=== PATIENT | male | born 1955 | race Caucasian/White ===

== ENCOUNTER 2023-07-11 00:32 | Day surgery (SDC) | payer MEDICARE, OTHER, SELFPAY ==
[2023-07-10 20:11] VITALS: BMI 32.3
[2023-07-10 20:13] VITALS: BP 146/89
[2023-07-10 20:43] LABS: % Basophils 0.2 % (0-2); % Eosinophils 0.1 % (0-6); % Immature Granulocytes 0.4 % (0-0.5); % Lymphocytes 5.8 % (20.5-51.1); % Monocytes 8.1 % (1.7-9.3); % Neutrophils 85.4 % (42.2-75.2); Absolute Immature Granulocytes 0.1 10^3/uL (0-0.05); Absolute Monocytes 1.4 10^3/uL (0.1-0.6); Absolute Neutrophils 15.1 10^3/uL (1.4-6.5); Hematocrit 43.7 % (39.0-52.0); Hemoglobin 15.6 g/dL (13.0-18.0); Mean Corp Hgb Conc. 35.7 g/dL (33.0-37.0); Mean Corpuscular Volume 92.4 fL (80.0-94.0); Mean Platelet Volume 10.2 fL (7.4-10.4); Nucleated Red Blood Cells % 0 % (-); Platelet Count 173 10^3/uL (130-400); Red Blood Cell Count 4.73 10^6/uL (4.70-6.10); White Blood Cell Count 17.7 10^3/uL (4.8-10.8)
[2023-07-10 21:06] LABS: ALT (SGPT) 37 U/L (0-50); AST (SGOT) 33 U/L (17-59); Albumin 4.6 g/dl (3.5-5.0); Alkaline Phosphatase 137 U/L (38-126); Blood Urea Nitrogen 19 mg/dl (9-20); Calcium 9.7 mg/dl (8.4-10.2); Carbon Dioxide 24 mmol/L (22-30); Chloride 100 mmol/L (98-107); Glucose 164 mg/dl (70-99); Lipase 106 U/L (23-300); Potassium 4.1 mmol/L (3.5-5.1); Sodium 133 mmol/L (135-145); Total Bilirubin 1.6 mg/dl (0.2-1.3); Total Protein 7.1 g/dl (6.3-8.2); eGFR > 60.00
[2023-07-10 21:11] VITALS: BP 125/78
[2023-07-10] MEDS: ZOFRAN 4 MG IV (21:42)
[2023-07-10] MEDS: NSS 500 IV (21:43)
[2023-07-10 22:00] VITALS: BP 117/74
--- NOTE | 2023-07-10 22:22 | ED.GENMED ---
History of Present Illness
General
Chief Complaint: Abdominal Pain
Source: patient and spouse
Exam Limitations: none
Time Seen by Provider: 07/10/23 21:18
Travel History
Have you had any contact with someone who has COVID-19?: No
Do you have any symptoms of coronavirus? Fever > 100 degrees, chills, cough, shortness of breath, sore throat, loss of taste or smell, muscle aches, or headache?: No
History of Present Illness
History of Present Illness:
67-year-old male 2 days of lower abdominal pain. Seem to start more right upper quadrant initially. Now points more to the right mid to lower. Slightly improved symptoms since yesterday. No nausea or vomiting initially however did become
nauseous in the ER. Bowel movements are normal. No previous similar episodes.
Past History
Past History
ED Past Medical History: HTN, Hypercholesterolemia and Other (Amyloidosis)
ED Past Surgical History: Other (Partial parathyroidectomy. Bariatric surgery)
Review of Systems
Review of Systems
All Other Systems: Not applicable
Constitutional: Denies fever
Respiratory: Reports no symptoms
Cardiac: Reports no symptoms
Phy Exam
Physical Exam
Physical Exam:
GENERAL: Alert and oriented in no apparent distress
EYE: Orbits normal.
NECK: Supple
CARDIAC: Regular rate and rhythm without any obvious murmurs.
LUNGS: Clear breath sounds,normal
ABDOMEN: Soft, bowel sounds present. Mild right lower quadrant tenderness slightly superior to McBurney's point. No rebound or guarding no mass or hernia
NEUROLOGICAL: Alert and oriented , grossly non-focal
SKIN: Warm and dry, no rash or lesion, no discoloration, skin intact.
MUSCULOSKELETAL: No edema,no deformity.Good color
PSYCH: Normal and appropriate interaction.
Course
Orders/Labs/Results
Orders:
Orders
07/10/23 20:23
Complete Blood Count/With Diff Urgent
Comprehensive Metabolic Panel Urgent
Lipase Urgent
07/10/23 21:26
IV Insert/Care/Rem.- Treatment PRN
Urinalysis Reflex To Culture Urgent
Date Specimen was Collected: 07/11/23
Time Specimen was Collected: 01:05
0.9% Sodium Chloride 500 ml [Nss] 500 ml IV BOLUS
Iohexol [Omnipaque] See Protocol PO NOW STA
07/10/23 21:40
CT Abd/Pel (IV only)-DH only Urgent
Comment:
Reason For Exam: Right lower quadrant pain
Ondansetron Injectable [Zofran] 4 mg .ROUTE .STK-MED ONE
Ondansetron Injectable [Zofran] 4 mg IV NOW STA
07/11/23 00:21
Admit/Transfer Patient As Directed
Co-Sign Provider:
Level of Care: Observation services
Assign to:: Medical/Surgical
Physician / Group: Devon
Diagnosis: Abd Pain
Reason for Hospitalization: Abd Pain
Expected length of stay greater than two midnights?: Yes
ELOS- Estimated Length of Stay in days: 2
I certify the patient meets the requirements for IP care: Yes
07/11/23 00:22
Code Status As Directed
Resuscitation Status: Full Code
Abnormal Lab Results
07/10/23
20:23
WBC 17.7 H 10^3/uL
(4.8-10.8)
MCH 33.0 H pg
(27.0-31.0)
Abs Immat Gran (auto) 0.1 H 10^3/uL
(0-0.05)
Absolute Neuts (auto) 15.1 H 10^3/uL
(1.4-6.5)
Absolute Lymphs (auto) 1.0 L 10^3/uL
(1.2-3.4)
Absolute Monos (auto) 1.4 H 10^3/uL
(0.1-0.6)
Neutrophils % 85.4 H %
(42.2-75.2)
Lymphocytes % 5.8 L %
(20.5-51.1)
Sodium 133 L mmol/L
(135-145)
Glucose 164 H mg/dl
(70-99)
Total Bilirubin 1.6 H mg/dl
(0.2-1.3)
Alkaline Phosphatase 137 H U/L
(38-126)
07/10/23 20:23
07/10/23 20:23
Vital Signs
Initial and Last Documented VS:
Initial Vital Signs
Temp Pulse Resp BP Pulse Ox
99.1 F 99 18 146/89 99
07/10/23 20:13 07/10/23 20:13 07/10/23 20:13 07/10/23 20:13 07/10/23 20:13
Last Documented Vital Signs
Temp Pulse Resp BP Pulse Ox
99.1 F 99 18 118/68 98
07/10/23 20:13 07/10/23 20:13 07/10/23 20:13 07/11/23 00:00 07/11/23 01:00
MDM/Problems Addressed
Differential Diagnosis Includes:
Differential would be appendicitis, right-sided diverticulitis, nonspecific. Doubt gallbladder. Location is too low. Workup in progress
Patient with mild free fluid/likely incidental gallstones, leukocytosis, etiology uncertain however patient remains uncomfortable enough with enough findings to support inpatient management
*Radiology
Radiology exam reviewed: radiology read reviewed (Gallstones/mild free fluid)
*Pulse Oximetry
Patient hypoxic: no
*Critical Care Note
Total Time (30-74mins, 75-104mins- exclusive of procedures): Not Applicable
ED Attending Note
-
Portions of this chart may have been created with voice recognition software.� Occasional wrong word or��sound alike� substitutions may have occurred due to the inherent limitations of voice recognition software.
Discharge Plan
Departure
Patient Disposition: Admit
Date of Disposition: 07/10/23
Time of Disposition: 23:55
Presentation/result/management discussed w/ accepting MD/DO: Hospitalist
Discharge Problem:
Right lower quadrant abdominal pain, Incidental gallstones, Leukocytosis/free fluid
Interventions
Interventions:
*Risk Screen - Suicide Last Done: 07/10/23 20:13
*General Assessment Last Done: 07/10/23 20:13
*Neglect/Abuse Screening Last Done: 07/10/23 21:19
ED- Fall Risk Assessment Last Done: 07/10/23 21:19
*ED COVID-19 Vaccine History Last Done: 07/10/23 20:13
QG-Apknlq-Ltamngoosr Assessment Last Done: 07/10/23 21:18
[2023-07-10 23:00] VITALS: BP 120/75
[2023-07-10 23:17] VITALS: BP 124/80
[2023-07-11] VITALS (19 sets, daily range): BP systolic 10–135; BP diastolic 56–90; BMI 32.1
--- NOTE | 2023-07-11 00:25 | HPS.HSE ---
Family Physician
-
Family Physician: Jordi Perea
Chief Complaint
-
Abd Pain
History of Present Illness
Patient is a 67y M with PMH significant for hypertension, nephrolithiasis and amyloidosis who presents to ED complaining of abdominal pain x 2 days. Patient states that he initially started with R sided abdominal pain that was most severe last
PM while lying in bed. Pain at it;s worst was 7/10. He had N/V x 1 episode at that time. Today, he has felt nauseated for much of the day, but had no further emesis. His pain migrated towards the lower abdomen / pelvis.
Patient denies any fevers / chills, urinary complaints, changes in bowels etc.
He presented to the ED for further evaluation. In the ED he is currently pain-free.
Patient recalls that he had R flank discomfort several days ago - he believed this was due to doing yard work.
He also reports an episode of severe RUQ pain about 2 weeks ago while lying in bed. This improved with TUMS and has not recurred.
He denies any other current complaints or concerns.
Medical History
Past Medical History
Past Medical History: Reports Other
Additional Past Medical History:
Hypertension
Nephrolithiasis
Hyperparathyroidism
AL Amyloidosis
Dyslipidemia
Past Surgical History: Reports Other
Additional Past Surgical History:
Fat Pad Biopsy
Parathyroidectomy
Gastric Sleeve
Social History
Tobacco: Non-smoker
Alcohol: None
Drug: None
Personal:
Living: With Family
Family History
Family History: Other (Mother: Longevity, Dementia Father: Prostate Cancer, CAD)
Allergies / Home Medications
Allergies reflects when Allergies were last updated in [facility].
Home Medications with original date entered in [facility]
Allergy/Medication List:
Allergies
Allergy/AdvReac Type Severity Reaction Status Date / Time
No Known Allergies Allergy Verified 07/10/23 20:13
Home Medications
atorvastatin 10 mg tablet 10 mg PO DAILY 07/11/23
daratumumab 20 mg/mL intravenous solution (Darzalex) See Rx Instructions .Route .COMPLEX 07/11/23
hydrochlorothiazide 25 mg tablet 25 mg PO DAILY 07/11/23
lisinopril 20 mg tablet 20 mg PO DAILY 07/11/23
Review of Systems
-
History Source: Patient
A 12 point ROS was completed and negative except as noted: Yes
Constitutional: Denies Fever or Chills
Respiratory: Denies Cough or Trouble Breathing
Cardiac: Denies Chest Pain or Palpitations
Abdomen/GI: Reports Abdominal Pain, Nausea and Vomiting; Denies Diarrhea, Constipated, Bloody Stools or Black Stools
: Reports Flank Pain; Denies Dysuria, Frequency, Incontinence, Difficulty Voiding or Bleeding
Musculoskeletal: Denies Joint Pain or Edema
Neurological: Denies Dizzy or Headache
Psych: Denies Depression or Anxiety
Physical Exam
Vital Signs
Vital Signs
Temp Pulse Resp BP Pulse Ox
99.1 F 99 18 124/80 95
07/10/23 20:13 07/10/23 20:13 07/10/23 20:13 07/10/23 23:17 07/10/23 23:17
Physical Exam
General: Other (67y M in no acute distress.)
HEENT: Moist mucous membranes and PERRLA
Respiratory: Clear; No Wheezes, Rales or Rhonchi
Cardiac: S1/S2 and Regular Rhythm; No Murmur
GI: Soft, Non Distended, Normal Bowel Sounds and Other (Perhaps mild RUQ tenderness. No rebound / guarding.)
Genito-urinary: No costovertebral tender
Musculoskeletal: No Clubbing, No Cyanosis and No Edema
Neuro: AO x 3
Laboratory Results
-
07/10/23 20:23
07/10/23 20:23
Laboratory Results
Total Bilirubin 1.6 mg/dl (0.2-1.3) H 07/10/23 20:23
AST 33 U/L (17-59) 07/10/23 20:23
ALT 37 U/L (0-50) 07/10/23 20:23
Alkaline Phosphatase 137 U/L (38-126) H 07/10/23 20:23
Lipase 106 U/L (23-300) 07/10/23 20:23
Impression/Plan
-
A/P: Patient is a 67y M with PMH significant for amyloidosis, hypertension and nephrolithiasis who presents to ED c/o 2 days of abdominal pain.
Abdominal Pain
- Observe overnight for further evaluation and treatment.
- Differential includes cholecystitis, symptomatic cholelithiasis, ureterolithiasis / passed stone, etc.
- No UA has been done yet to assess for hematuria - await results.
- 1 cm bladder stone noted on CT. ? R flank pain followed by R abdominal pain and then pelvic pain represented passage of stone?
- 3 large gallstones seen on CT. Prior episode of RUQ pain. Associated N/V and mild RUQ tenderness on today's exam.
- Bili / Alk phos mildly elevated as well.
- Check abdominal US for further evaluation.
- Cover with IV abx for now given leukocytosis.
- Consider Surgery evaluation if US suggests gallbladder disease.
- Monitor for any new / worsening symptoms.
- Supportive care, pain control / antiemetics as needed.
Benign Hypertension
- Stable. Continue lisinopril with holding parameters.
Amyloidosis
- Currently in treatment - now on once monthly Darzalex only.
- Patient notes that recent OP las included WBC = 9.4.
- Follow-up with Heme Onc as an outpatient.
DVT Prophylaxis: Lovenox
Code Status: Full
[2023-07-11 01:20] LABS: Urine Albumin Negative (Neg - Trace); Urine Bilirubin Negative (Negative); Urine Character Clear (Clear); Urine Color Yellow; Urine Glucose Negative (Negative); Urine Ketone Negative (Negative); Urine Leukocyte Negative (Negative); Urine Nitrite Negative (Negative); Urine Occult Blood Negative (Negative); Urine Urobilinogen Negative (Neg - 1+)
[2023-07-11] MEDS: NSS 1000 IV ×2 (04:04→21:36)
[2023-07-11] MEDS: ZOSYN 50 IV ×3 (04:04→21:30)
[2023-07-11 05:34] LABS: Hematocrit 39.5 % (39.0-52.0); Hemoglobin 14.2 g/dL (13.0-18.0); Mean Corp Hgb Conc. 35.9 g/dL (33.0-37.0); Mean Corpuscular Hgb 32.5 pg (27.0-31.0); Mean Corpuscular Volume 90.4 fL (80.0-94.0); Mean Platelet Volume 10.4 fL (7.4-10.4); Platelet Count 146 10^3/uL (130-400); Red Blood Cell Count 4.37 10^6/uL (4.70-6.10); Red Cell Dist. Width 12.3 % (11.5-14.5); White Blood Cell Count 15.8 10^3/uL (4.8-10.8)
[2023-07-11 05:54] LABS: ALT (SGPT) 30 U/L (0-50); AST (SGOT) 27 U/L (17-59); Alkaline Phosphatase 127 U/L (38-126); Blood Urea Nitrogen 19 mg/dl (9-20); Calcium 9.2 mg/dl (8.4-10.2); Carbon Dioxide 26 mmol/L (22-30); Chloride 99 mmol/L (98-107); Direct Bilirubin 0.4 mg/dl (0.0-0.4); Estimated Creatinine Clearance 103 ml/min; Glucose 120 mg/dl (70-99); Potassium 4.2 mmol/L (3.5-5.1); Sodium 134 mmol/L (135-145); Total Bilirubin 1.6 mg/dl (0.2-1.3); Total Protein 6.3 g/dl (6.3-8.2); eGFR > 60.00
[2023-07-11] MEDS: ZESTRIL 20 MG PO (10:13)
[2023-07-11] MEDS: FLUSH (NSS) 1 FLUSH IV ×2 (10:13→13:44)
[2023-07-11] MEDS: LIPITOR 10 MG PO (10:13)
--- NOTE | 2023-07-11 10:20 | PTCARENOTE ---
Received pt from ER/US via stretcher, accompanied by volunteer. Pt AAO x3, ARCHER well, ambulatory to bed, no c/o weakness/dizziness. VSS. On room air- pulse ox 98%, no SOB noted. Abd large, soft, BS (+), no c/o abd discomfort at present, to start
clear liquids. Pt DTV, urinal at bedside; pt instructed to strain all urine. Afebrile, warm and dry. IVF's NSS @ 100 ml/hr infusing via Lt AC site without sx of infiltration. Oriented to 4east, currently resting quietly. Will continue to
monitor.
--- NOTE | 2023-07-11 10:36 | CM ---
Addendum entered by Lianna Gamez 07/11/23 12:59:
Patient for surgery later today, per patient.
Original Note:
Patient seen at bedside with physician. Patient states that he lives with his in 2 story home. Patient stated that he has no DME and currently undergoing Chemo from [facility]. Patient PCP is Dr. Perea and patient states that he is normally
independent of all ADL's and IADL's. Patient stated that he does not anticipate discharge needs at this time. Patient currently discussing with surgery next steps. Patient currently OBS/LAGOS and CM will review form with patient pending discussion.
CM will continue to follow for discharge planning needs.
Plan; home with no needs
--- NOTE | 2023-07-11 11:13 | W.PN.HOSP.TC ---
Today's Communication/Plan
-
consult surgery
anticipate OR today
keep NPO
Assessment / Plan
Assessment / Plan
pt is a 67 year old male
Abdominal Pain due to acute cholecystitis--US positive--keep NPO--consult surgery--likely OR later today--cont zosyn--pain control
Essential Hypertension- Stable--Continue lisinopril with holding parameters.
Amyloidosis--Currently in treatment - now on once monthly Darzalex only--Follow-up with Heme Onc as an outpatient.
DVT Prophylaxis: Lovenox
Code Status: Full
Anticipated Discharge: 24 - 48 hours
Subjective/Interval History
-
Date of Service: July 11, 2023
pt feels better--just returned from US
Objective Data
-
Labs:
Laboratory Results
07/11/23
04:03
WBC 15.8 H
Hgb 14.2
Hct 39.5
Plt Count 146
Sodium 134 L
Potassium 4.2
Chloride 99
Carbon Dioxide 26
BUN 19
Creatinine 0.9
Glucose 120 H
Calcium 9.2
Total Bilirubin 1.6 H
AST 27
ALT 30
Alkaline Phosphatase 127 H
Vital Signs:
max temp for 24 hours
07/10/23
20:13
Temp 99.1 F
Vital Signs
Temp Pulse Resp BP Pulse Ox
99 F 79 16 135/90 98
07/11/23 09:00 07/11/23 10:13 07/11/23 09:00 07/11/23 10:13 07/11/23 09:41
Review of Systems
-
All other systems: Reviewed and negative
Physical Exam
-
General: Well Developed, Well Nourished and No Apparent Distress
HEENT: Normocephalic and Atraumatic
Respiratory: Clear to Auscultation; Negative Wheezes or Rhonchi
Cardiac: Regular Rhythm and S1/S2; Negative Murmur
GI: Soft, Nontender, Nondistended and Normal Bowel Sounds
Musculoskeletal: No Clubbing, No Cyanosis and No Edema
Skin: Warm
Neuro: Awake
--- NOTE | 2023-07-11 11:14 | CON.GS ---
Medical History
-
Chief Complaint: RUQ pain
History of Present Illness:
Patient is a 67 yo M with a PMH notable for GERD, HTN, amyloidosis (on monthly immunologic), s/p abdominal fat pad biopsy, and s/p laparoscopic sleeve gastrectomy in 2014 (weight loss approximately 100 pounds). Mr. Quinn presents with approximately
2 days of RIGHT-sided abdominal pain. He states that his symptoms began acutely on Monday afternoon/evening. Symptoms began after a meal of chicken and rice. He describes sharp RUQ abdominal pain. His pain been migrated towards the more RIGHT
mid central abdomen. Associated nausea and vomiting. No fevers or chills. No back or shoulder pain. Denies any jaundice, pale stools, or tea colored urine. Currently he states that his symptoms have significantly improved though has some mild
residual discomfort. He denies any prior attacks of similar pain. He does have issues with reflux post sleeve procedure.
Past Medical History
Past Medical History: GERD, HTN and Other (Amyloidosis)
Past Surgical History: Bariatric (Laparoscopic sleeve gastrectomy in 2015) and Other (Abdominal fat pad biopsy)
Social History
Tobacco: Non-Smoker
Alcohol: None
Drug: None
Personal:
Living: With Family
Employment: Retired
Family History
Family History: Reviewed & Noncontributory
Allergies / Home Medications
Allergy/AdvReac Type Severity Reaction Status Date / Time
No Known Allergies Allergy Verified 07/11/23 09:43
�Medication �Instructions �Recorded �Confirmed �Type
atorvastatin 10 mg tablet 10 mg PO DAILY High Cholesterol 07/11/23 07/11/23 History
daratumumab 20 mg/mL intravenous 20 mg IV MONTHLY amyloidosis 07/11/23 07/11/23 History
solution (Darzalex)
hydrochlorothiazide 25 mg tablet 25 mg PO DAILY Fluid 07/11/23 07/11/23 History
Retention/Swelling/blood pressure
lisinopril 40 mg tablet 40 mg PO DAILY Blood Pressure 07/11/23 07/11/23 History
Review of Systems
-
A 10 point review of systems was completed, and was negative except as per HPI.
Physical Exam
Vital Signs
Temp Pulse Resp BP Pulse Ox
99 F 79 16 135/90 98
07/11/23 09:00 07/11/23 10:13 07/11/23 09:00 07/11/23 10:13 07/11/23 09:41
07/10/23 07/11/23 07/12/23
06:59 06:59 06:59
Actual Weight 108 kg 107.218 kg
Body Mass Index (BMI) 32.1
Lab Results
07/11/23 04:03
07/11/23 04:03
WBC 15.8 10^3/uL (4.8-10.8) H 07/11/23 04:03
Hgb 14.2 g/dL (13.0-18.0) 07/11/23 04:03
Hct 39.5 % (39.0-52.0) 07/11/23 04:03
Plt Count 146 10^3/uL (130-400) 07/11/23 04:03
Abs Immat Gran (auto) 0.1 10^3/uL (0-0.05) H 07/10/23 20:23
Neutrophils % 85.4 % (42.2-75.2) H 07/10/23 20:23
Physical Exam
General: Well Developed, Well Nourished and No Apparent Distress
HEENT: Normocephalic and Anicteric
Respiratory: Non Labored Respirations
Cardiac: Regular Rhythm
GI: Soft, Non Tender, Non Distended, Obese and Other (Non-peritoneal, negative Laura's sign)
Musculoskeletal: No Edema
Skin: Warm and Dry
Neuro: Nonfocal/Grossly Intact
Data Reviewed
-
CT Scan: Image Personally Visualized and interpreted and Report Reviewed by me
Ultrasound: Image Personally Visualized and interpreted and Report Reviewed by me
Labs: Labs Reviewed by me
Assessment / Plan
-
Patient is a 67 yo M p/w acute cholecystitis
The natural history and pathophysiology of biliary and stone disease was discussed. Anatomy was reviewed utilizing pictorial images. Workup thus far including CT, US, and labs were reviewed. Options for management including a trial of dietary
advancement and low-fat diet with outpatient management versus proceeding with cholecystectomy were considered and discussed. The pros and cons of both approaches was discussed. Specifically, we discussed persistent pain and worsening of
cholecystitis versus surgical risks. Recommend cholecystectomy.
Plan for laparoscopic cholecystectomy with possible cholangiogram. The procedure itself, as well as the risks, benefits, and alternatives was discussed. Specifically, we discussed the risks of bleeding, infection, injury to surrounding structures
(bowel, bile ducts), CBD injury, need for open procedure. Typical postprocedural recovery was discussed. All questions answered. Consent signed.
-- Laparoscopic cholecystectomy with possible IOC
-- NPO, IVF
-- Antibiotics: Zosyn
-- Pain control: Tylenol and IV Dilaudid PRN
--- NOTE | 2023-07-11 11:45 | W.SUR.PREOP ---
Pre-Operative Surgical Note
-
I have examined this patient prior to the performance of the scheduled procedure.
The patient's condition is unchanged from the time of the current History and
Physical and the patient is able to undergo the scheduled procedure.
[2023-07-11] MEDS: ZOFRAN 4 MG IV (13:44)
--- NOTE | 2023-07-11 15:30 | PTCARENOTE ---
Pt resting quietly since arrival on unit. Remains NPO; c/o mild nausea- good effect with IV Zofran. Voiding clear yellow urine in urinal, no stones noted. IVF's NSS @ 100 ml/hr infusing via Lt AC site without sx of infiltration. Pt currently in
OR.
--- NOTE | 2023-07-11 18:35 | W.IMMPOSTOP ---
Addendum entered and electronically signed by All Her MD 07/12/23 07:20:
Dic# [id number]
Addendum entered and electronically signed by All Her MD 07/11/23 18:45:
Plan:
-- ADAT to LFD as tolerated
-- Drain can be DC'd on DC if outputs benign
-- Treat with 4 days abx (Zosyn while in hospital, Augmentin on DC)
Original Note:
Surgical Immed Post Op Note
-
Primary Surgeon: Taina
Assisting Surgeon: BRUCE Sandoval
Pre-op Diagnosis: Acute cholesytitis
Post-op Diagnosis: Acute on chronic cholecystitis
Procedure Performed: Laparoscopic cholecystectomy with IOC
Anesthesia Type: General
Specimen / Cultures:
1. Gallbladder
Estimated Blood Loss: 23 cc
Complications: None
Operative Findings:
1. Chronically inflamed GB dense adhesions on infundibulum of GB due to large > 3cm impacted stones, adhesions to duodenum at this level
2. Critical view of safety obtained, IOC without filling defects, anatomy confirmed, no leakage from duodenum
3. Duct take with cobian load stapler, artery with clips
4. 19 Fr Roland drain into operative field
[2023-07-11] MEDS: ZOSYN IV (19:28)
[2023-07-11] MEDS: ROXICODONE 5 MG PO (21:30)
[2023-07-12] MEDS: ZOSYN 50 IV ×3 (04:04→16:01)
[2023-07-12 06:00] VITALS: BMI 29.5
[2023-07-12 07:30] VITALS: BP 104/64
[2023-07-12 08:19] LABS: Hematocrit 37.5 % (39.0-52.0); Hemoglobin 13.3 g/dL (13.0-18.0); Mean Corp Hgb Conc. 35.5 g/dL (33.0-37.0); Mean Corpuscular Hgb 32.8 pg (27.0-31.0); Mean Corpuscular Volume 92.6 fL (80.0-94.0); Mean Platelet Volume 10.4 fL (7.4-10.4); Platelet Count 134 10^3/uL (130-400); Red Blood Cell Count 4.05 10^6/uL (4.70-6.10); Red Cell Dist. Width 12.4 % (11.5-14.5); White Blood Cell Count 17.3 10^3/uL (4.8-10.8)
[2023-07-12] MEDS: NSS 1000 IV (08:38)
[2023-07-12] MEDS: ZESTRIL 20 MG PO (08:39)
[2023-07-12] MEDS: NSS (PRESERVATIVE FREE) 10 ML IV (08:40)
[2023-07-12] MEDS: LIPITOR 10 MG PO (08:40)
[2023-07-12] MEDS: PROTONIX IV 40 MG IV (08:40)
[2023-07-12] MEDS: FLUSH (NSS) 1 FLUSH IV ×3 (08:41→16:01)
[2023-07-12 08:46] LABS: ALT (SGPT) 48 U/L (0-50); AST (SGOT) 53 U/L (17-59); Albumin 3.4 g/dl (3.5-5.0); Alkaline Phosphatase 97 U/L (38-126); Blood Urea Nitrogen 22 mg/dl (9-20); Calcium 8.6 mg/dl (8.4-10.2); Carbon Dioxide 28 mmol/L (22-30); Chloride 99 mmol/L (98-107); Estimated Creatinine Clearance 73 ml/min; Glucose 144 mg/dl (70-99); Magnesium 2.1 mg/dl (1.6-2.3); Potassium 4.4 mmol/L (3.5-5.1); Sodium 136 mmol/L (135-145); Total Bilirubin 1.6 mg/dl (0.2-1.3); Total Protein 5.6 g/dl (6.3-8.2); eGFR > 60.00
--- NOTE | 2023-07-12 09:58 | W.PN.GS2 ---
Today's Communication / Plan
-
OK for DC
Assessment / Plan
-
67M POD1 s/p lap shahrzad for ACC
Doing well post-op, OK for DC home from GS standpoint
Will plan to DC drain prior to DC
D/w Hospitalist
Subjective Data
-
Date of Service: July 12, 2023
AFVSS, pain controlled, [place] PO, has not yet ambulated
Objective Data
-
Intake and Output
07/11/23 07/12/23 07/13/23
06:59 06:59 06:59
Intake Total 2350 / 2350
Output Total 1530 / 1530
Balance 820 / 820
Intake:
Oral fluids 300 / 300
IV fluids (Total) 1900 / 1900
normosol 100 / 100
IV piggybacks 150 / 150
Output:
Drain Output (Total) 55 / 55
Right Abdomen Mayito-Romo 55 / 55
Urine, Voided 1475 / 1475
Vital Signs
Temp Pulse Resp BP Pulse Ox
97.5 F 65 16 104/64 96
07/12/23 07:30 07/12/23 08:39 07/12/23 07:30 07/12/23 08:39 07/12/23 08:35
Lab Results
07/12/23 07:47
07/12/23 07:47
Calcium 8.6 mg/dl (8.4-10.2) 07/12/23 07:47
Magnesium 2.1 mg/dl (1.6-2.3) 07/12/23 07:47
Total Bilirubin 1.6 mg/dl (0.2-1.3) H 07/12/23 07:47
Direct Bilirubin 0.4 mg/dl (0.0-0.4) 07/11/23 04:03
AST 53 U/L (17-59) 07/12/23 07:47
ALT 48 U/L (0-50) 07/12/23 07:47
Alkaline Phosphatase 97 U/L (38-126) 07/12/23 07:47
Total Protein 5.6 g/dl (6.3-8.2) L 07/12/23 07:47
Albumin 3.4 g/dl (3.5-5.0) L 07/12/23 07:47
Physical Exam
-
Gen: NAD
Abd: soft, obese, approp ttp, incisions cdi, drain ss (non bilious)
[2023-07-12] MEDS: NSS IV (10:02)
--- NOTE | 2023-07-12 14:09 | CM ---
Patient seen at bedside with physician. Patient now SDS and for discharge today. Patient at bedside and indicated that she would provide transportation home. Patient with no needs. CM will continue to follow for discharge planning needs.
Plan; home with no needs
--- NOTE | 2023-07-12 14:15 | W.PN.HOSP.TC ---
Today's Communication/Plan
-
d/c if tolerating dinner
Assessment / Plan
Assessment / Plan
pt is a 67 year old male
Abdominal Pain due to acute cholecystitis--US positive---apprec surgery--Post op lap shahrzad today--change zosyn to augmentin--pain control
Essential Hypertension- Stable--Continue lisinopril with holding parameters.
Amyloidosis--Currently in treatment - now on once monthly Darzalex only--Follow-up with Heme Onc as an outpatient.
DVT Prophylaxis: Lovenox
Code Status: Full
Anticipated Discharge: Today
Subjective/Interval History
-
Date of Service: July 12, 2023
pt cleared for d/c by surgery
Objective Data
-
Labs:
Laboratory Results
07/12/23
07:47
WBC 17.3 H
Hgb 13.3
Hct 37.5 L
Plt Count 134
Sodium 136
Potassium 4.4
Chloride 99
Carbon Dioxide 28
BUN 22 H
Creatinine 1.1
Glucose 144 H
Calcium 8.6
Total Bilirubin 1.6 H
AST 53
ALT 48
Alkaline Phosphatase 97
Vital Signs:
max temp for 24 hours
07/11/23
23:51
Temp 97.8 F
Vital Signs
Temp Pulse Resp BP Pulse Ox
97.5 F 65 16 104/64 96
07/12/23 07:30 07/12/23 08:39 07/12/23 07:30 07/12/23 08:39 07/12/23 08:35
I&O
07/11/23 07/12/23 07/13/23
06:59 06:59 06:59
Intake Total 2350 / 2350
Output Total 1530 / 1530
Balance 820 / 820
Review of Systems
-
All other systems: Reviewed and negative
Physical Exam
-
General: Well Developed, Well Nourished and No Apparent Distress
HEENT: Normocephalic and Atraumatic
Respiratory: Clear to Auscultation; Negative Wheezes or Rhonchi
Cardiac: Regular Rhythm and S1/S2; Negative Murmur
GI: Soft, Nontender, Nondistended and Normal Bowel Sounds
Musculoskeletal: No Clubbing, No Cyanosis and No Edema
Neuro: Awake
[2023-07-12 15:00] VITALS: BP 105/65
--- NOTE | 2023-07-12 16:24 | PTCARENOTE ---
Pt AAO x3, ARCHER well, ambulatory in room/hernandez, [place] well. VSS. On room air- pulse ox 98%, no SOB noted. Abd large, soft, [place] full liquids; to start low fat diet for dinner. Voiding clear lt srinivas urine in urinal; straining all urine- no stones
noted. Abd incision sites x4 D/I; Rt RADHA drain dc'd by Dr. Thomas. Resting comfortably at present. Will continue to monitor.
--- NOTE | 2023-07-12 17:25 | PTCARENOTE ---
patient offered washing washed face an stated'he will wash at home being discharged'.
--- NOTE | 2023-07-13 06:57 | W.DCSUMMARY ---
Discharge Summary
Discharge Data
Date of Admission: 07/11/23
Date of Discharge: 07/12/23
-
Pending Results: Yes
Additional Pending Results:
Final path report on surgical specimen
Hospital Course
Primary care physician : Jordi Perea
Principal Discharge diagnosis : Acute cholecystitis status post laparoscopic cholecystectomy
Chronic Discharge diagnosis : Essential hypertension, amyloidosis
Hospital Course : Patient is a 67-year-old male who presented complaining of 2 days worth of abdominal pain. He stated that it started in his right side of his abdomen that was most severe last evening prior to admission while lying in bed. He had
1 episode of nausea and vomiting. He denied fevers, chills, urinary complaints, bowel changes. 2 weeks prior to this admission he had another episode of severe right upper quadrant pain which improved with Tums. Patient was admitted.
Problem #1: Acute cholecystitis status post laparoscopic cholecystectomy. Patient was admitted and started on Zosyn. Ultrasound came back positive for acute cholecystitis. Surgery was consulted and the patient went to surgery for a laparoscopic
cholecystectomy on July 11, 2023. Patient was cleared for discharge the following day by surgery. He was tolerating a diet. He will complete his antibiotic course with Augmentin.
Problem #2: All other medical issues. These include Essential hypertension, amyloidosis. These medical issues were stable during this hospitalization. Medications were continued as able.
Patient is stable for discharge home at this time. If there are any questions regarding this dictation or his hospital stay, please do not hesitate to call. Our office number is [phone].
Important imaging findings :
CT SCAN ABDOMEN/PELVIS IMPRESSION: Mild free fluid in the pelvis uncommon in a male patient. Etiology unknown.
Large gallstones.
Mild fecal material throughout the colon.
Several nonobstructing left renal stones
Bladder stone.
Bilateral too small to characterize hypodense renal lesions likely benign cysts.
Tiny pericardial effusion versus pericardial thickening.
Mild prostate hypertrophy.
ULTRASOUND IMPRESSION:
1. Cholelithiasis, gallbladder distention, and gallbladder wall thickening. Negative sonographic Laura sign. Combined with findings recent prior CT, findings are suggestive of acute cholecystitis. If diagnosis is in doubt clinically, consider HIDA
scan.
2. Mild biliary ductal dilation, common bile duct measuring 6 mm in diameter.
3. Intrarenal nephrolithiasis on the left side. Mild prominence of the left intrarenal collecting system, not appreciated on recent prior CT.
Procedure findings :
Primary Surgeon: Taina
Assisting Surgeon: BRUCE Sandoval
Pre-op Diagnosis: Acute cholesytitis
Post-op Diagnosis: Acute on chronic cholecystitis
Procedure Performed: Laparoscopic cholecystectomy with IOC
Anesthesia Type: General
Specimen / Cultures:
1. Gallbladder
Estimated Blood Loss: 23 cc
Complications: None
Operative Findings:
1. Chronically inflamed GB dense adhesions on infundibulum of GB due to large > 3cm impacted stones, adhesions to duodenum at this level
2. Critical view of safety obtained, IOC without filling defects, anatomy confirmed, no leakage from duodenum
3. Duct take with cobian load stapler, artery with clips
4. 19 Fr Roland drain into operative field
Discharge Plan
-
Patient Disposition: Home (Routine Discharge)
Discharge Diagnosis/Procedures: Laparoscopic cholecystectomy with cholangiogram, essential hypertension, amyloidosis
Condition: Good
Diet: Low Fat
Activity: No strenuous activity
Additional Activity: No heavy lifting (>20 lbs) or strenuous activities for 2 weeks postoperatively
Driving Restrictions: No driving if too sore or taking narcotics
Bathing Restrictions: OK to Shower
Wound Care: Keep incisions clean and dry. Glue will flake off in 2 to 3 weeks. Stitches will dissolve.
Activity Restrictions/Additional Instructions:
Call for fevers (>100.5), nausea or vomiting, worsening abdominal pain, yellowing of the eyes or skin
Referrals:
All Her MD [Active] - in two to four weeks
Jordi Perea MD [Family Provider] - in less than 1 week
Prescriptions:
New
acetaminophen 325 mg Tablet
650 mg PO Q4HPRN PRN (Reason: Mild Pain / Temp > 101) Qty: 0 0RF
amoxicillin-pot clavulanate 500-125 mg tablet
1 tab PO Q12H Qty: 8 0RF
Continued
atorvastatin 10 mg Tablet
10 mg PO DAILY
hydrochlorothiazide 25 mg Tablet
25 mg PO DAILY
Darzalex 20 mg/mL Solution
20 mg IV MONTHLY
omeprazole 40 mg capsule,delayed release(DR/EC)
40 mg PO DAILY PRN (Reason: GERD symptoms )
cholecalciferol (vitamin D3) [Vitamin D3] 50 mcg (2,000 unit) Capsule
50 mcg PO DAILY
Held
lisinopril 40 mg Tablet
40 mg PO DAILY
Hold Instructions: discuss restarting with your doctor
Discharge Orders:
Discharge Patient (As Directed); Ordered 07/12/23
Ordered By: Analia Tierney
Discharge Date and Time
Discharge Date/Time: 07/12/23 18:15
Print Language: [id number]
[2023-07-13 19:11] LABS: Hepatitis C Antibody Negative (Negative)
== END 2023-07-12 18:15 | disposition home or self-care (01) ==
LOC: SDS 00:32
PROVIDERS: Emergency Medicine; Hospitalist; Internal Medicine; CONSULT PHYSICIAN Surgery; EMERGENCY PHYSICIAN Emergency Medicine; FAMILY PHYSICIAN Family Medicine
DX: K80.00 Calculus of gallbladder with acute cholecystitis without obstruction (principal); E85.9 Amyloidosis, unspecified; I10 Essential (primary) hypertension; K21.9 Gastro-esophageal reflux disease without esophagitis; N20.0 Calculus of kidney; N21.0 Calculus in bladder; N40.0 Benign prostatic hyperplasia without lower urinary tract symptoms
CPT/HCPCS: 47563; 88304; 74177; 74300; 76000; 76700; 80053; 81003; 82248; 83690; 83735; 85025; 85027; 86803; 96374; 96375; 99285; G0378; Q9967